=== PATIENT | female | born 1985 | race Caucasian/White ===

== ENCOUNTER 2023-03-19 07:57 | Day surgery (SDC) | payer BC ==
[~2023-03-19 07:57] MED LIST: Lactated Ringers 1,000 ML IV SCH; Sodium Chloride 0.9% 10 ML Syringe FLUSH PRN; Sodium Chloride 0.9% 2.5 ML Syringe FLUSH PRN; Sodium Chloride 0.9% 20 ML SDV IV PRN; ceFAZolin 2 GM in Sodium Chloride 0.9% 50 ML IV ONE
[2023-03-19] MEDS ORDERED: fentaNYL 250 MCG/5 ML SDV ONE (08:28)
[2023-03-19] MEDS ORDERED: Propofol 200 MG/20 ML SDV ONE (08:28)
[2023-03-19] MEDS ORDERED: Lidocaine 1% 20 ML MDV ONE (08:45)
[2023-03-19] MEDS ORDERED: Bupivacaine 0.5% 30 ML SDV ONE (08:45)
[2023-03-19] MEDS ORDERED: Ondansetron 4 MG/2 ML SDV ONE (09:55)
[2023-03-19] MEDS ORDERED: ceFAZolin 2 GM Vial ONE (09:55)
[2023-03-19] MEDS ORDERED: Ketorolac 30 MG/ML SDV ONE (09:55)
[2023-03-19] MEDS ORDERED: Dexamethasone 4 MG/ML 5 ML MDV ONE (09:55)
== END 2023-03-19 11:03 | disposition home or self-care (01) ==
LOC: MW.SDS 07:57
PROVIDERS: ATTEND Surgery
DX: N61.1 Abscess of the breast and nipple (principal); N60.42 Mammary duct ectasia of left breast; M06.9 Rheumatoid arthritis, unspecified; F41.9 Anxiety disorder, unspecified; Z79.899 Other long term (current) drug therapy; Z80.3 Family history of malignant neoplasm of breast; Z87.891 Personal history of nicotine dependence
CPT/HCPCS: 19120; 81025; 87070; 87075; 87077; 87186; 87205; J0131; J0690; J1100; J1885; J2405; J2704; J3010; J3490; J7120